=== PATIENT | female | born 1995 | race Caucasian/White ===

== ENCOUNTER 2017-12-27 10:04 | Emergency (ER) | payer BC, MEDICAID ==
[~2017-12-27] VITALS: Ht 154.9 cm; Wt 80.0 kg
[~2017-12-27 10:04] MED LIST: IBUP-1572 PO
[2017-12-27 10:07] VITALS: BP 136/76
[2017-12-27] MEDS ORDERED: amox tr/potassium clavulanate 875/125mg TAB PO ONE (10:15)
[2017-12-27] MEDS ORDERED: LIDOcaine 1.5% w/epinephrine 1:200,000 5ml ampul IJ ONE (10:15)
[2017-12-27] MEDS ORDERED: AMOX-580 PO (10:20)
[2017-12-27] MEDS ORDERED: LIDOcaine 1% w/EPI 1:100,000 30ml vial (MDV) IJ ONE (10:30)
== END 2017-12-27 11:18 | disposition home or self-care (01) ==
LOC: ER 10:05
DX: L05.01 Pilonidal cyst with abscess (principal); Z79.2 Long term (current) use of antibiotics
CPT/HCPCS: 10060; 87070; 99283; J3490

== ENCOUNTER 2017-12-29 09:20 | Emergency (ER) | payer MEDICAID ==
[~2017-12-29] VITALS: Ht 154.9 cm; Wt 81.2 kg
[~2017-12-29 09:20] MED LIST changes: +AMOX-580 PO
[2017-12-29 09:27] VITALS: BP 111/72
== END 2017-12-29 10:39 | disposition home or self-care (01) ==
LOC: ER 09:20
DX: L05.91 Pilonidal cyst without abscess (principal); Z79.2 Long term (current) use of antibiotics; Z79.899 Other long term (current) drug therapy
CPT/HCPCS: 99282

== ENCOUNTER 2023-02-02 12:40 | Emergency (ER) | payer MEDICAID ==
[~2023-02-02] VITALS: Ht 154.9 cm; Wt 77.3 kg
[~2023-02-02 12:40] MED LIST changes: -AMOX-580 PO
[2023-02-02 13:33] VITALS: BP 118/82; PULSE 101; O2SAT 100
[2023-02-02 14:59] VITALS: RESP 18
[2023-02-02 15:33] LABS: BASOPHILS % (AUTO) 0.3 % (0-1); EOSINOPHILS # (AUTO) 0.1 X10'3 (0-0.9); EOSINOPHILS % (AUTO) 0.8 % (0-6); HEMATOCRIT 39.5 % (35.0-45.0); HEMOGLOBIN 13.4 g/dl (12.0-16.0); LYMPHOCYTES # (AUTO) 0.9 X10'3 (1.1-4.8); LYMPHOCYTES % (AUTO) 10.4 % (21-51); MEAN CORPUSCULAR HEMOGLOBIN 31.6 PG (27.0-31.0); MEAN PLATELET VOLUME 8.6 FL (7.4-10.4); MONOCYTES # (AUTO) 0.7 X10'3 (0-0.9); MONOCYTES % (AUTO) 7.8 % (2-12); NEUTROPHILS # (AUTO) 6.8 X10'3 (1.8-7.7); NEUTROPHILS % (AUTO) 80.7 % (42-75); PLATELET COUNT 166 X10'3 (140-440); RED BLOOD COUNT 4.25 X10'6 (4.20-5.60); RED CELL DISTRIBUTION WIDTH 13.3 % (11.5-14.5); WHITE BLOOD COUNT 8.5 X10'3 (4.5-11.0)
[2023-02-02] MEDS ORDERED: LIDOcaine 1% 30ml preserv. free vial IJ ONE (15:40)
[2023-02-02] MEDS ORDERED: ibuprofen tablet 400 MG TABLET PO ONE (15:40)
[2023-02-02] MEDS ORDERED: LIDOcaine/epinephrine/tetracaine TOPICAL sol 3 ML syringe TOP ONE (15:40)
[2023-02-02 15:42] LABS: ALANINE AMINOTRANSFERASE 79 U/L (12-78); ALBUMIN 3.7 G/DL (3.4-5.0); ALKALINE PHOSPHATASE 71 IU/L (46-116); ANION GAP 7 (8-16); ASPARTATE AMINO TRANSFERASE 40 U/L (10-37); BILIRUBIN,TOTAL 0.8 MG/DL (0.1-1.0); BLOOD UREA NITROGEN 5 MG/DL (7-18); BUN/CREATININE RATIO 6.3 (10.0-20.0); CALCIUM 8.7 MG/DL (8.5-10.1); CHLORIDE 105 MMOL/L (99-107); GLUCOSE 88 MG/DL (70-104); POTASSIUM 3.8 MMOL/L (3.5-5.1); SODIUM 137 MMOL/L (135-145); TOTAL CARBON DIOXIDE 25.2 MMOL/L (24-32); TOTAL PROTEIN 7.3 G/DL (6.4-8.2); eCRCL 80 ML/MIN; eGFR 86 ML/MIN
[2023-02-02] MEDS ORDERED: SULF1TAB49 PO (17:01)
[2023-02-02] MEDS ORDERED: IBUP-1984 PO (17:01)
[2023-02-02 17:53] VITALS: TEMP 98.1
== END 2023-02-02 17:59 | disposition home or self-care (01) ==
LOC: ER 12:41
DX: L05.01 Pilonidal cyst with abscess (principal); Z79.899 Other long term (current) drug therapy
CPT/HCPCS: 10080; 36415; 80053; 85025; 99283; A6266; J3490; J7030; A6253; A6449

== ENCOUNTER 2024-01-14 09:55 | Outpatient (CLI) | payer MEDICAID ==
[2024-01-14] VITALS (19 sets, daily range): BP systolic 101–130; BP diastolic 41–94; PULSE 75–107
== END 2024-01-14 23:59 | disposition home or self-care (01) ==
LOC: CARD DIAG 09:55
PROVIDERS: ATTEND Physician Assistant Medical
DX: R55 Syncope and collapse (principal)
CPT/HCPCS: 93660